=== PATIENT | female | born 1955 | race Caucasian/White ===

== ENCOUNTER 2016-10-11 09:39 | Inpatient (IN) | payer MEDICARE ==
[~2016-10-11] VITALS: Ht 165.1 cm; Wt 73.5 kg
[~2016-10-11 09:39] MED LIST: ATEN100T PO; FLUT1INH INH; HYDR-3516 PO; LISI10TA3 PO; LYRI150C PO; MACR100C2 PO; MONT10TA2 PO; PROT40TA PO; ROPI0.25 PO; VENTAER INH
[2016-10-14] MEDS ORDERED: ALPR0.25 PO (16:00)
[2016-10-15] MEDS ORDERED: ceFAZolin 2 GM PREMIX 50 ML IV SCH (08:00)
[2016-10-15] MEDS ORDERED: SODIUM CHLORID 0.9% 500 ML IV SCH (08:00)
[2016-10-15] MEDS: METRONIDAZOLE 500 MG/100 ML ISONTONIC SOLN IV SCH ×3 (08:00→23:12)
[2016-10-15] MEDS ORDERED: INSULIN HUMAN REGULAR 1,000 UNITS/10 ML VIAL SQ PRN (08:00)
[2016-10-15] MEDS ORDERED: METOPROLOL TARTRATE 25 MG TAB PO PRN (08:00)
[2016-10-15] MEDS ORDERED: ALVIMOPAN 12 MG CAPSULE - On Call PO SCH (08:00)
[2016-10-15] MEDS ORDERED: LACTATED RINGER'S 1000 ML IV SCH (08:00)
[2016-10-15] MEDS ORDERED: ZYRT10CA PO (08:01)
[2016-10-15 08:04] VITALS: BP 121/76; PULSE 70; RESP 16; TEMP 97.9; O2SAT 96
[2016-10-15 08:09] LABS: AUTOMATED NEUTROPHIL # 7.7 TH/MM3 (1.8-7.7); BASOPHIL # 0.1 TH/MM3 (0-0.2); BASOPHIL % 0.5 % (0.0-2.0); EOSINOPHIL # 0.2 TH/MM3 (0-0.4); EOSINOPHIL % 1.5 % (0.0-4.0); HEMATOCRIT 38.9 % (35.0-46.0); HEMO FLAGS DIFF FINAL; LYMPH % 14.2 % (9.0-44.0); LYMPHOCYTE # 1.5 TH/MM3 (1.0-4.8); MEAN CELL VOLUME 81.2 FL (80.0-100.0); MEAN CORPUSCULAR HEMOGLOBIN 27.3 PG (27.0-34.0); MEAN CORPUSCULAR HGB CONC 33.7 % (32.0-36.0); MONO % 8.3 % (0.0-8.0); NEUT % 75.5 % (16.0-70.0); PLATELET COUNT 300 TH/MM3 (150-450); RED BLOOD COUNT 4.79 MIL/MM3 (4.00-5.30); RED CELL DISTRIBUTION WIDTH 17.1 % (11.6-17.2); WHITE BLOOD COUNT 10.2 TH/MM3 (4.0-11.0)
[2016-10-15 08:32] LABS: ALT (GPT) 21 U/L (10-53); ANION GAP 7 MEQ/L (5-15); AST (GOT) 16 U/L (15-37); BICARBONATE 27.1 MEQ/L (21.0-32.0); BLOOD UREA NITROGEN 7 MG/DL (7-18); CHLORIDE 100 MEQ/L (98-107); GLOMERULAR FILTRATION RATE 97 ML/MIN (>89); POTASSIUM 4.2 MEQ/L (3.5-5.1); SODIUM (NA) 134 MEQ/L (136-145)
[2016-10-15 08:34] LABS: ALKALINE PHOSPHATASE 119 U/L (45-117); TOTAL BILIRUBIN ADULT 0.7 MG/DL (0.2-1.0)
[2016-10-15] MEDS ORDERED: ACETAMINOPHEN 1000 MG/100 ML VIAL IV ONE (08:41)
[2016-10-15] MEDS ORDERED: SUGAMMADEX SODIUM 200 MG/2 ML VIAL IV PUSH ONE ×2 (08:41)
[2016-10-15] MEDS ORDERED: FAMOTIDINE 20 MG/2 ML VIAL ONE (08:45)
[2016-10-15] MEDS ORDERED: MIDAZOLAM HCL 2 MG/2 ML VIAL ONE (08:45)
[2016-10-15] MEDS ORDERED: BUPIVACAINE/EPINEPHRINE 0.25% 50 ML VIAL INFIL ONE (09:26)
[2016-10-15] MEDS ORDERED: LACTATED RINGER'S 1000 ML INJ 2,000 ML IV ONE (12:00)
[2016-10-15] MEDS ORDERED: ONDANSETRON HCL 4 MG/2 ML VIAL IV PUSH ONE (12:00)
[2016-10-15] MEDS ORDERED: ceFAZolin 1 GM ADDVANTAGE VIAL IV ONE (12:00)
[2016-10-15] MEDS ORDERED: NEOSTIGMINE 3 MG/3 ML SYR IV ONE (12:00)
[2016-10-15] MEDS ORDERED: PHENYLEPH/NS 1000 MCG/10 ML SYR IV ONE (12:00)
[2016-10-15] MEDS ORDERED: PROPOFOL 200 MG/20 ML AMP IV ONE (12:00)
[2016-10-15] MEDS ORDERED: Post-op Orders (for Pharmacy) MISC XX ONE (13:02)
--- NOTE | 2016-10-15 13:10 | PD.OP ---
Operative Report Date of Surgery: Oct 15, 2016 Preoperative Diagnosis: severe recurrent sigmoid diverticulitis, UH Postoperative Diagnosis: same with adherence to bladder wall. Procedure: lap hand assisted sigmoid resection with colorectal anastomosis and lap repair cystotomy rigid proctoscopy UH repair Anesthesia: general Surgeon: Jae De Los Santos Crocheter(s): Adis Molina Operation and Findings: Sigmoid with chronic thickened inflammatory adherence to urinary bladder. Colon to pathology. Bladder repair 2 layer suture repair laparoscopic. Uh repair primary with suture. EBL less than 50 ml. Jae De Los Santos MD Oct 15, 2016 13:10
[2016-10-15] MEDS ORDERED: SODIUM CHLORIDE 0.9% FLUSH 10 ML FLUSH IV FLUSH PRN (13:15)
[2016-10-15] MEDS ORDERED: MAGNESIUM HYDROXIDE SUSP 30 ML CUP PO PRN (13:15)
[2016-10-15] MEDS ORDERED: diphenhydrAMINE HCL 25 MG CAP PO PRN (13:15)
[2016-10-15] MEDS ORDERED: ACETAMINOPHEN/HYDROcodone 325 MG/5 MG TAB PO PRN (13:15)
[2016-10-15] MEDS ORDERED: fentaNYL CITRATE 250 MCG/5 ML AMP ONE ×2 (13:22)
[2016-10-15] MEDS: LACTATED RINGER'S 1000 ML INJ 1,000 ML IV SCH ×2 (13:39→23:17)
[2016-10-15] MEDS ORDERED: *morphine SULFATE 8 MG/ML PERIprocedure ONLY ONE ×2 (14:17→14:26)
[2016-10-15] MEDS: ACETAMINOPHEN 1000 MG/100 ML VIAL IV SCH ×2 (15:00→20:29)
[2016-10-15] MEDS: HYDROmorphone HCL PF 1 MG/ML VIAL IV PRN ×2 (15:31→18:08)
[2016-10-15 16:00] VITALS: BP 140/79; PULSE 70; RESP 10; TEMP 96.1; O2SAT 99
[2016-10-15] MEDS: ALPRAZolam 0.25 MG TAB PO PRN (18:08)
[2016-10-15 18:34] VITALS: O2SAT 99
[2016-10-15 20:00] VITALS: BP 127/82; PULSE 74; RESP 20; TEMP 98.7; O2SAT 99
[2016-10-15] MEDS: SODIUM CHLORIDE 0.9% FLUSH 10 ML FLUSH IV FLUSH SCH (20:29)
[2016-10-15] MEDS: DOCUSATE SODIUM 100 MG CAP PO SCH (20:30)
[2016-10-15] MEDS: LISINOPRIL 10 MG TAB PO SCH (20:32)
[2016-10-15] MEDS: PANTOPRAZOLE SOD 40 MG DELAYED RELEASE TAB PO SCH (20:32)
[2016-10-15] MEDS: MONTELUKAST SODIUM 10 MG TAB PO SCH (20:32)
[2016-10-15] MEDS: ATENOLOL 100 MG TAB PO SCH (20:34)
[2016-10-15] MEDS: ACETAMINOPHEN/HYDROcodone 325 MG/5 MG TAB PO PRN (23:13)
[2016-10-16] VITALS (8 sets, daily range): BP systolic 118–158; BP diastolic 80–94; PULSE 63–73; RESP 17–20; TEMP 97–98.7; O2SAT 91–100
[2016-10-16] MEDS: HYDROmorphone HCL PF 1 MG/ML VIAL IV PRN ×6 (00:14→20:08)
[2016-10-16] MEDS: ACETAMINOPHEN 1000 MG/100 ML VIAL IV SCH ×2 (03:52→08:04)
[2016-10-16] MEDS: ACETAMINOPHEN/HYDROcodone 325 MG/5 MG TAB PO PRN ×5 (03:52→23:27)
[2016-10-16] MEDS: ALPRAZolam 0.25 MG TAB PO PRN ×4 (03:56→23:27)
[2016-10-16 04:43] LABS: AUTOMATED NEUTROPHIL # 6.3 TH/MM3 (1.8-7.7); BASOPHIL % 0.3 % (0.0-2.0); EOSINOPHIL # 0.1 TH/MM3 (0-0.4); EOSINOPHIL % 1.1 % (0.0-4.0); HEMATOCRIT 35.4 % (35.0-46.0); HEMO FLAGS DIFF FINAL; LYMPH % 18.8 % (9.0-44.0); LYMPHOCYTE # 1.7 TH/MM3 (1.0-4.8); MEAN CELL VOLUME 81.6 FL (80.0-100.0); MEAN CORPUSCULAR HEMOGLOBIN 27.7 PG (27.0-34.0); MEAN CORPUSCULAR HGB CONC 33.9 % (32.0-36.0); MONO % 9.7 % (0.0-8.0); NEUT % 70.1 % (16.0-70.0); PLATELET COUNT 255 TH/MM3 (150-450); RED BLOOD COUNT 4.33 MIL/MM3 (4.00-5.30); RED CELL DISTRIBUTION WIDTH 16.8 % (11.6-17.2)
[2016-10-16] MEDS: PREGABALIN 75 MG CAP PO SCH (08:04)
[2016-10-16] MEDS: ALVIMOPAN 12 MG CAPSULE PO SCH ×2 (08:04→20:01)
[2016-10-16] MEDS: DOCUSATE SODIUM 100 MG CAP PO SCH ×2 (08:05→20:01)
[2016-10-16] MEDS: SODIUM CHLORIDE 0.9% FLUSH 10 ML FLUSH IV FLUSH SCH ×2 (08:05→20:00)
[2016-10-16] MEDS: CETIRIZINE HCL 10 MG TAB PO SCH (08:05)
[2016-10-16] MEDS: ATENOLOL 100 MG TAB PO SCH ×2 (08:05→20:05)
[2016-10-16] MEDS: PANTOPRAZOLE SOD 40 MG DELAYED RELEASE TAB PO SCH ×2 (08:05→20:02)
[2016-10-16] MEDS: METRONIDAZOLE 500 MG/100 ML ISONTONIC SOLN IV SCH ×3 (08:06→23:28)
[2016-10-16] MEDS: FLUTICASONE 100 MCG/VILANTEROL 25 MCG INHALER INH SCH (09:00)
[2016-10-16] MEDS ORDERED: ALVIMOPAN 12 MG CAPSULE - Post-op dosing PO SCH (09:00)
--- NOTE | 2016-10-16 09:52 | HHI.PR ---
Subjective Subjective Notes awake, alert. C/O heartburn despite protonix. Has pain, meds effective, but do not last long enough. Objective Vitals/I&O Vital Signs Date Time Temp Pulse Resp B/P Pulse Ox O2 Delivery O2 Flow Rate FiO2 10/16/16 08:00 98.1 63 17 158/80 97 10/16/16 07:57 Nasal Cannula 3.00 Labs Laboratory Tests Test 10/16/16 03:39 White Blood Count 9.0 Red Blood Count 4.33 Hemoglobin 12.0 Hematocrit 35.4 Mean Corpuscular Volume 81.6 Mean Corpuscular Hemoglobin 27.7 Mean Corpuscular Hemoglobin 33.9 Concent Red Cell Distribution Width 16.8 Platelet Count 255 Mean Platelet Volume 8.2 Neutrophils (%) (Auto) 70.1 Lymphocytes (%) (Auto) 18.8 Monocytes (%) (Auto) 9.7 Eosinophils (%) (Auto) 1.1 Basophils (%) (Auto) 0.3 Neutrophils # (Auto) 6.3 Lymphocytes # (Auto) 1.7 Monocytes # (Auto) 0.9 Eosinophils # (Auto) 0.1 Basophils # (Auto) 0.0 CBC Comment DIFF FINAL Differential Comment Sodium Level 135 Potassium Level 4.0 Chloride Level 99 Carbon Dioxide Level 29.0 Anion Gap 7 Blood Urea Nitrogen 5 Creatinine 0.54 Estimat Glomerular Filtration 116 Rate Random Glucose 103 Calcium Level 7.9 Cardiovascular: Regular Lungs: Clear Abdomen: Other (incisions all healing well, dry, no erythema. Dressing intact LLQ. BSs normal. ), Post-op tenderness Extremities: No edema, SCD's on A/P Assessment and Plan POD 1 s/p lap assisted sigmoid resection, repair bladder for severe sigmoid diverticulitis. Add flexeril, carafate. Walk halls. Maintain barr due to bladder repair. reassurrance provided. Jae De Los Santos MD Oct 16, 2016 09:52
[2016-10-16] MEDS: LACTATED RINGER'S 1000 ML INJ 1,000 ML IV SCH ×2 (10:00→20:14)
--- NOTE | 2016-10-16 10:59 | EKG ---
Date Performed: 10/15/2016 Time Performed: 07:59:12 PTAGE: 61 years EKG: Sinus rhythm ST DEVIATION AND MODERATE T-WAVE ABNORMALITY, CONSIDER ANTERIOR ISCHEMIA ABNORMAL ECG PREVIOUS TRACING : 08/11/2015 11.03 DOCTOR: Michael Pat Interpretating Date/Time 10/16/2016 10:57:12
[2016-10-16] MEDS: SUCRALFATE 1 GM/10 ML CUP PO SCH ×3 (11:22→20:01)
[2016-10-16] MEDS: CYCLOBENZAPRINE HCL 10 MG TAB PO PRN ×2 (11:22→20:07)
[2016-10-16] MEDS: ENOXAPARIN SODIUM 30 MG/0.3 ML SYRINGE SQ SCH (11:22)
[2016-10-16] MEDS: ONDANSETRON HCL 4 MG/2 ML VIAL IV PRN (14:51)
[2016-10-16] MEDS: ACETAMINOPHEN 325 MG TAB PO SCH ×2 (15:00→20:04)
[2016-10-16] MEDS: ALUMINUM/MAGNESIUM/SIMETH 30 ML CUP PO PRN ×2 (18:20→23:27)
[2016-10-16] MEDS: MONTELUKAST SODIUM 10 MG TAB PO SCH (20:04)
[2016-10-16] MEDS: LISINOPRIL 10 MG TAB PO SCH (20:05)
[2016-10-17] VITALS (7 sets, daily range): BP systolic 137–179; BP diastolic 3–98; PULSE 79–90; RESP 19–20; TEMP 96.6–98.6; O2SAT 90–97
[2016-10-17] MEDS: HYDROmorphone HCL PF 1 MG/ML VIAL IV PRN ×4 (01:40→21:06)
[2016-10-17] MEDS: ONDANSETRON HCL 4 MG/2 ML VIAL IV PRN ×2 (01:40→08:07)
[2016-10-17] MEDS ORDERED: ALPRAZolam 0.25 MG TAB PO ONE (01:45)
[2016-10-17] MEDS: ACETAMINOPHEN 325 MG TAB PO SCH ×4 (03:00→21:00)
[2016-10-17] MEDS: CYCLOBENZAPRINE HCL 10 MG TAB PO PRN ×2 (04:39→18:33)
[2016-10-17] MEDS: ALUMINUM/MAGNESIUM/SIMETH 30 ML CUP PO PRN ×3 (04:39→20:59)
[2016-10-17] MEDS: SUCRALFATE 1 GM/10 ML CUP PO SCH ×4 (04:40→20:59)
[2016-10-17] MEDS: ATENOLOL 100 MG TAB PO SCH ×2 (08:09→20:59)
[2016-10-17] MEDS: ACETAMINOPHEN/HYDROcodone 325 MG/5 MG TAB PO PRN ×3 (08:09→18:34)
[2016-10-17] MEDS: PREGABALIN 75 MG CAP PO SCH (08:09)
[2016-10-17] MEDS: ALVIMOPAN 12 MG CAPSULE PO SCH ×2 (08:09→20:59)
[2016-10-17] MEDS: DOCUSATE SODIUM 100 MG CAP PO SCH ×2 (08:09→21:00)
[2016-10-17] MEDS: CETIRIZINE HCL 10 MG TAB PO SCH (08:09)
[2016-10-17] MEDS: PANTOPRAZOLE SOD 40 MG DELAYED RELEASE TAB PO SCH ×2 (08:09→20:59)
[2016-10-17] MEDS: METRONIDAZOLE 500 MG/100 ML ISONTONIC SOLN IV SCH ×3 (08:10→23:33)
[2016-10-17] MEDS: SODIUM CHLORIDE 0.9% FLUSH 10 ML FLUSH IV FLUSH SCH ×2 (08:10→21:00)
[2016-10-17] MEDS: FLUTICASONE 100 MCG/VILANTEROL 25 MCG INHALER INH SCH (08:11)
[2016-10-17] MEDS: LACTATED RINGER'S 1000 ML INJ 1,000 ML IV SCH ×3 (08:11→21:02)
[2016-10-17] MEDS: ENOXAPARIN SODIUM 30 MG/0.3 ML SYRINGE SQ SCH (10:49)
[2016-10-17 14:07] LABS: AUTOMATED NEUTROPHIL # 13.8 TH/MM3 (1.8-7.7); BASOPHIL # 0.1 TH/MM3 (0-0.2); BASOPHIL % 0.3 % (0.0-2.0); HEMATOCRIT 36.8 % (35.0-46.0); HEMO FLAGS DIFF FINAL; LYMPHOCYTE # 0.9 TH/MM3 (1.0-4.8); MEAN CELL VOLUME 80.4 FL (80.0-100.0); MEAN CORPUSCULAR HEMOGLOBIN 27.3 PG (27.0-34.0); MEAN CORPUSCULAR HGB CONC 33.9 % (32.0-36.0); MONO % 4.1 % (0.0-8.0); NEUT % 89.6 % (16.0-70.0); PLATELET COUNT 313 TH/MM3 (150-450); RED BLOOD COUNT 4.57 MIL/MM3 (4.00-5.30); RED CELL DISTRIBUTION WIDTH 16.2 % (11.6-17.2); WHITE BLOOD COUNT 15.4 TH/MM3 (4.0-11.0)
[2016-10-17] MEDS: ALPRAZolam 0.25 MG TAB PO PRN (16:13)
[2016-10-17] MEDS: ENALAPRILAT 2.5 MG/2 ML VIAL IV PRN (18:34)
[2016-10-17] MEDS: LISINOPRIL 10 MG TAB PO SCH (20:59)
[2016-10-17] MEDS: MONTELUKAST SODIUM 10 MG TAB PO SCH (20:59)
--- NOTE | 2016-10-17 23:47 | HHI.PR ---
Subjective Subjective Notes reflux still bad today Objective Vitals/I&O Vital Signs Date Time Temp Pulse Resp B/P Pulse Ox O2 Delivery O2 Flow Rate FiO2 10/17/16 20:24 95 Nasal Cannula 3.00 10/17/16 20:00 97.6 82 20 151/96 Labs Laboratory Tests Test 10/17/16 13:47 White Blood Count 15.4 Red Blood Count 4.57 Hemoglobin 12.5 Hematocrit 36.8 Mean Corpuscular Volume 80.4 Mean Corpuscular Hemoglobin 27.3 Mean Corpuscular Hemoglobin 33.9 Concent Red Cell Distribution Width 16.2 Platelet Count 313 Mean Platelet Volume 8.2 Neutrophils (%) (Auto) 89.6 Lymphocytes (%) (Auto) 6.0 Monocytes (%) (Auto) 4.1 Eosinophils (%) (Auto) 0.0 Basophils (%) (Auto) 0.3 Neutrophils # (Auto) 13.8 Lymphocytes # (Auto) 0.9 Monocytes # (Auto) 0.6 Eosinophils # (Auto) 0.0 Basophils # (Auto) 0.1 CBC Comment DIFF FINAL Differential Comment Cardiovascular: Regular Lungs: Clear Abdomen: Non-distended, Post-op tenderness Extremities: No edema, Perfused, SCD's on A/P Assessment and Plan 61yo female POD 2 s/p lap assisted sigmoid resection, repair bladder for severe sigmoid diverticulitis. reflux still bothering her Maintain barr due to bladder repair. OOB/pulmonary toilet Vadim Dawson MD Oct 17, 2016 23:46
[2016-10-18] VITALS (7 sets, daily range): BP systolic 137–159; BP diastolic 81–92; PULSE 80–90; RESP 17–20; TEMP 96.2–99.8; O2SAT 91–96
[2016-10-18] MEDS: HYDROmorphone HCL PF 1 MG/ML VIAL IV PRN ×4 (02:06→22:21)
[2016-10-18] MEDS: ACETAMINOPHEN 325 MG TAB PO SCH ×4 (03:00→20:33)
[2016-10-18] MEDS: ACETAMINOPHEN/HYDROcodone 325 MG/5 MG TAB PO PRN ×4 (03:57→20:30)
[2016-10-18] MEDS: ALUMINUM/MAGNESIUM/SIMETH 30 ML CUP PO PRN (03:57)
[2016-10-18 05:27] LABS: AUTOMATED NEUTROPHIL # 7.9 TH/MM3 (1.8-7.7); BASOPHIL % 0.1 % (0.0-2.0); EOSINOPHIL # 0.1 TH/MM3 (0-0.4); EOSINOPHIL % 1.1 % (0.0-4.0); HEMATOCRIT 33.7 % (35.0-46.0); HEMO FLAGS DIFF FINAL; LYMPH % 8.7 % (9.0-44.0); LYMPHOCYTE # 0.8 TH/MM3 (1.0-4.8); MEAN CELL VOLUME 81.4 FL (80.0-100.0); MEAN CORPUSCULAR HEMOGLOBIN 26.7 PG (27.0-34.0); MEAN CORPUSCULAR HGB CONC 32.9 % (32.0-36.0); MONO % 7.3 % (0.0-8.0); NEUT % 82.8 % (16.0-70.0); PLATELET COUNT 268 TH/MM3 (150-450); RED BLOOD COUNT 4.14 MIL/MM3 (4.00-5.30); RED CELL DISTRIBUTION WIDTH 16.7 % (11.6-17.2); WHITE BLOOD COUNT 9.5 TH/MM3 (4.0-11.0)
[2016-10-18] MEDS: SUCRALFATE 1 GM/10 ML CUP PO SCH ×4 (05:30→20:29)
--- NOTE | 2016-10-18 07:45 | HHI.PR ---
Subjective Subjective Notes feels a little better, having diarrhea, reflux somewhat improved. Wants to go home soon. Objective Vitals/I&O Vital Signs Date Time Temp Pulse Resp B/P Pulse Ox O2 Delivery O2 Flow Rate FiO2 10/18/16 00:00 97.4 80 20 142/89 95 10/17/16 20:24 Nasal Cannula 3.00 Labs Laboratory Tests Test 10/17/16 10/18/16 13:47 04:55 White Blood Count 15.4 9.5 Red Blood Count 4.57 4.14 Hemoglobin 12.5 11.1 Hematocrit 36.8 33.7 Mean Corpuscular Volume 80.4 81.4 Mean Corpuscular Hemoglobin 27.3 26.7 Mean Corpuscular Hemoglobin 33.9 32.9 Concent Red Cell Distribution Width 16.2 16.7 Platelet Count 313 268 Mean Platelet Volume 8.2 8.0 Neutrophils (%) (Auto) 89.6 82.8 Lymphocytes (%) (Auto) 6.0 8.7 Monocytes (%) (Auto) 4.1 7.3 Eosinophils (%) (Auto) 0.0 1.1 Basophils (%) (Auto) 0.3 0.1 Neutrophils # (Auto) 13.8 7.9 Lymphocytes # (Auto) 0.9 0.8 Monocytes # (Auto) 0.6 0.7 Eosinophils # (Auto) 0.0 0.1 Basophils # (Auto) 0.1 0.0 CBC Comment DIFF FINAL DIFF FINAL Differential Comment Cardiovascular: Regular Lungs: Clear Abdomen: Non-distended, Other (LLQ dressing removed, no erythema or drainage. Laparoscopy sites clean and dry with steristrips. Umbilical dressing left intact , ecchymosis present.), Post-op tenderness Extremities: No edema, Perfused, SCD's on A/P Assessment and Plan POD 3 s/p lap assisted sigmoid resection, repair bladder for severe sigmoid diverticulitis. Postoperative reflux, somewhat improved. Already on double dose protonix, carafate and mylanta. Diarrhea. Will stop flagyl and entereg. Start regular diet. Stop IVFs. Will recheck later today to determine possible DC. Jae De Los Santos MD Oct 18, 2016 07:45
[2016-10-18] MEDS: DOCUSATE SODIUM 100 MG CAP PO SCH ×2 (09:00→20:29)
[2016-10-18] MEDS: SODIUM CHLORIDE 0.9% FLUSH 10 ML FLUSH IV FLUSH SCH ×2 (09:00→20:55)
[2016-10-18] MEDS: CETIRIZINE HCL 10 MG TAB PO SCH (09:00)
[2016-10-18] MEDS: ATENOLOL 100 MG TAB PO SCH ×2 (09:00→20:30)
[2016-10-18] MEDS: FLUTICASONE 100 MCG/VILANTEROL 25 MCG INHALER INH SCH (09:00)
[2016-10-18] MEDS: PANTOPRAZOLE SOD 40 MG DELAYED RELEASE TAB PO SCH ×2 (09:01→20:30)
[2016-10-18] MEDS: PREGABALIN 75 MG CAP PO SCH (09:01)
[2016-10-18] MEDS ORDERED: PROPOFOL 200 MG/20 ML AMP IV ONE (10:55)
[2016-10-18] MEDS ORDERED: DO NOT ADM ANY ANTICOAGULANT DRUGS XX PRN (11:05)
--- NOTE | 2016-10-18 11:14 | GIPROC ---
[facility] [address] [facility]. [facility], [address] EGD PROCEDURE REPORT EXAM DATE: 10/18/2016 PATIENT NAME: Christy Edmonds MR#: [id number] BIRTHDATE: 1955 STATUS: inpatient ATTENDING: Aleksandra Wells MD CORPORATE OPERATIONS COMPLIANCE MANAGER: Quinn Paniagua and Derrek Gordillo INDICATIONS: The patient is a 61 yr old female here for an EGD due to history of GERD. PROCEDURE PERFORMED: EGD w/ biopsy MEDICATIONS: None and Per Anesthesia. ASA CLASS: Class II PHYSICAL EXAM: normal CONSENT: The patient understands the risks and benefits of the procedure and understands that these risks include, but are not limited to: sedation, allergic reaction, infection, perforation and/or bleeding. Alternative means of evaluation and treatment include, among others: physical exam, x-rays, and/or surgical intervention. The patient elects to proceed with this endoscopic procedure. DESCRIPTION OF PROCEDURE: for proper function. Hand hygiene and appropriate measures for infection prevention was taken. After the risks, benefits and alternatives of the procedure were thoroughly explained, Informed consent was verified, confirmed and timeout was successfully executed by the treatment team. The Pentax EG-[id number] endoscope was introduced through the mouth and advanced to the second portion of the duodenum. The instrument was slowly withdrawn as the mucosa was fully examined. ESOPHAGUS: There was LA Class D esophagitis noted. Multiple biopsies were performed. A medium sized non-bleeding, linear and clean-based ulcer was found in the distal esophagus. Biopsies were taken at edge of the ulcer and at the center of the ulcer. STOMACH: There was moderate and erosive gastritis in the gastric body and gastric antrum. Multiple biopsies were performed. The stomach otherwise appeared normal. DUODENUM: The duodenal mucosa appeared normal in the duodenal bulb and 2nd part duodenum. Retroflexed views revealed a hiatal hernia The gastroscope was then slowly withdrawn and removed. COMPLICATIONS: There were no complications. IMPRESSIONS: 1. There was LA Class D esophagitis noted; multiple biopsies were performed 2. Medium sized ulcer was found in the distal esophagus; biopsies were taken 3. There was gastritis in the gastric body and gastric antrum; multiple biopsies were performed 4. The stomach otherwise appeared normal 5. Normal duodenal mucosa in the duodenal bulb and 2nd part duodenum 6. Retroflexed views revealed a hiatal hernia RECOMMENDATIONS: 1. Await biopsy results. Biopsy results will not be ready for 7-10 days. If you don't hear from us in two weeks, call our office for biopsy results. 2. Anti-reflux regimen 3. Continue PPI 4. Avoid NSAIDS 5. Carafate 1 gm po qid ac 6. Protonix 40mg BID 7. START nystatin swish and swallow x 1 wk PATIENT CONDITION: stable DISPOSITION: Inpatient REPEAT EXAM: Return 2 months EGD Aleksandra Wells MD eSigned: Aleksandra Wells MD 10/18/2016 11:14 AM cc: Jae De Los Santos M.D. PATIENT NAME: Christy Edmonds MR#: [id number]
--- NOTE | 2016-10-18 11:29 | PD.CONS ---
GI Consult GI Consult Full consult dictate Post procedure note ASSESSMENT/PLAN: 1. Severe GERD S/P EGD with bx 1. LA class D ulcerative esophagitis s/p bx 2. Distal Esophagus ulcer 3. 2cm hiatal hernia 4. Gastritis 5. Nl DU PLAN: 1. Protonix 40 mg bid 2. CARAFATE 1 gm PO Q AC and HS x 2 months 3. Nystatin 5 mg po swish and swallow x 2 wks 4. will rpt EGD in 2 months 5. Diet as tolerated 6. No objection to discharge from gi stand point. It was a pleasure seeing Christy Edmonds . Thank you for this consult. Entered by: Aleksandra Quintero MD Oct 18, 2016 11:29
--- NOTE | 2016-10-18 12:11 | MB ---
cc: NASIR BRITTON DATE OF 1955 SERVICE DATE 10/18/2016 SERVICE GI ENDOSCOPIST Nasir Britton MD REASON FOR CONSULTATION Severe gastroesophageal reflux despite PPI therapy. HISTORY OF PRESENT ILLNESS This is a 61-year-old female who has been having recurrent bouts of diverticulitis. She recently underwent an elective laparoscopic sigmoid resection, has had an uneventful postoperative course in regards to her abdominal surgery. She has been complaining of severe reflux symptoms despite being on Protonix twice a day. She is having episodes of dysphagia due to the symptoms, therefore GI was consulted. PAST MEDICAL HISTORY 1. Diverticulosis. 2. Diverticulitis. 3. Severe gastroesophageal reflux disease. PAST SURGICAL HISTORY Recent sigmoid colectomy for sigmoid resection. MEDICATIONS Please see MAR for complete list. ALLERGIES BACTRIM. NOVOCAIN. SULFA. FAMILY HISTORY No GI malignancy. SOCIAL HISTORY Denies tobacco, alcohol or drug abuse. REVIEW OF SYSTEMS A 12-point review of systems was obtained which was otherwise negative and noncontributory except for the above-mentioned in the HPI. PHYSICAL EXAMINATION VITAL SIGNS: Temperature 99.3, 81, 21, 32/82, 98% on room air. GENERAL: Alert oriented. In mild acute distress. GENERAL: Normocephalic. Oral mucosa is moist. HEENT: Mucosa dry but pink. Extraocular movements are intact. NECK: Supple, nontender. No carotid bruits. LUNGS: Clear to auscultation, nonlabored. CARDIOVASCULAR: Normal rate and rhythm. GASTROINTESTINAL: Soft, nontender. Not distended. Bowel sounds present in all four quadrants. BACK: No CVA angle tenderness. LYMPHATICS: No lymphadenopathy. MUSCULOSKELETAL: Normal range of motion. SKIN: Warm, dry, intact. NEURO: Alert, oriented. PSYCHIATRIC: Cooperative. Appropriate mood and affect. LABORATORY DATA WBC 9.5, hemoglobin 11.1, platelet count of 268. Sodium 135, potassium 4.0, chloride 99m bicarb 29, BUN 5, creatinine 0.54. IMPRESSION Recurrent severe reflux despite PPI therapy. 4. Episodic dysphagia. RECOMMENDATIONS 1. Keep the patient n.p.o. for now. 2. Will plan for an upper endoscopy for further evaluation and recommendations. 3. Further recommendations to follow depending on results of the endoscopy. MD MONO Pineda/SSB /11:33 AM /11:53 AM MTDTaran
[2016-10-18] MEDS: ENOXAPARIN SODIUM 30 MG/0.3 ML SYRINGE SQ SCH (12:19)
[2016-10-18] MEDS: NYSTATIN SUSP 500,000 U/5 ML CUP SWISH-SWAL SCH ×3 (12:22→20:29)
[2016-10-18] MEDS: ONDANSETRON HCL 4 MG/2 ML VIAL IV PRN ×2 (15:41→22:21)
[2016-10-18] MEDS: ALPRAZolam 0.25 MG TAB PO PRN (15:53)
--- NOTE | 2016-10-18 16:35 | HHI.PR ---
Subjective Subjective Notes Had EGD this morning, severe esophagitis, ulcer and gastritis identified, with some changes suggestive of yeast involvement. Pt c/o difficulty swallowing. Additional meds ordered by Dr Krystin Wells. Objective Vitals/I&O Vital Signs Date Time Temp Pulse Resp B/P Pulse Ox O2 Delivery O2 Flow Rate FiO2 10/18/16 12:00 98.1 83 17 142/82 92 10/18/16 09:26 Nasal Cannula 3.00 Labs Laboratory Tests Test 10/18/16 04:55 White Blood Count 9.5 Red Blood Count 4.14 Hemoglobin 11.1 Hematocrit 33.7 Mean Corpuscular Volume 81.4 Mean Corpuscular Hemoglobin 26.7 Mean Corpuscular Hemoglobin 32.9 Concent Red Cell Distribution Width 16.7 Platelet Count 268 Mean Platelet Volume 8.0 Neutrophils (%) (Auto) 82.8 Lymphocytes (%) (Auto) 8.7 Monocytes (%) (Auto) 7.3 Eosinophils (%) (Auto) 1.1 Basophils (%) (Auto) 0.1 Neutrophils # (Auto) 7.9 Lymphocytes # (Auto) 0.8 Monocytes # (Auto) 0.7 Eosinophils # (Auto) 0.1 Basophils # (Auto) 0.0 CBC Comment DIFF FINAL Differential Comment A/P Assessment and Plan POD 3 s/p lap assisted sigmoid resection, repair bladder for severe sigmoid diverticulitis. Severe Esophagitis. New meds per GI. Good stays in for a week due to bladder repair- urine grossly clear. Pt not ready for DC, not swallowing well now. Will renew IVFs. Jae De Los Santos MD Oct 18, 2016 16:35
[2016-10-18] MEDS: LACTATED RINGER'S 1000 ML INJ 1,000 ML IV SCH ×2 (17:17→22:42)
[2016-10-18] MEDS: MONTELUKAST SODIUM 10 MG TAB PO SCH (20:29)
[2016-10-18] MEDS: LISINOPRIL 10 MG TAB PO SCH (20:31)
[2016-10-19] VITALS: BP 150/86; PULSE 88; RESP 20; TEMP 97; O2SAT 94
[2016-10-19] MEDS: ACETAMINOPHEN 325 MG TAB PO SCH ×4 (03:00→19:54)
[2016-10-19] MEDS: SUCRALFATE 1 GM/10 ML CUP PO SCH ×4 (03:36→19:45)
[2016-10-19] MEDS: ONDANSETRON HCL 4 MG/2 ML VIAL IV PRN (03:37)
[2016-10-19] MEDS: ACETAMINOPHEN/HYDROcodone 325 MG/5 MG TAB PO PRN ×3 (03:37→16:27)
[2016-10-19 08:00] VITALS: BP 168/89; PULSE 76; RESP 17; TEMP 98.3; O2SAT 95
[2016-10-19] MEDS: DOCUSATE SODIUM 100 MG CAP PO SCH ×2 (08:44→19:54)
[2016-10-19] MEDS: NYSTATIN SUSP 500,000 U/5 ML CUP SWISH-SWAL SCH ×4 (08:44→19:45)
[2016-10-19] MEDS: CETIRIZINE HCL 10 MG TAB PO SCH (08:46)
[2016-10-19] MEDS: PREGABALIN 75 MG CAP PO SCH (08:46)
[2016-10-19] MEDS: PANTOPRAZOLE SOD 40 MG DELAYED RELEASE TAB PO SCH ×2 (08:46→19:46)
[2016-10-19] MEDS: HYDROmorphone HCL PF 1 MG/ML VIAL IV PRN ×3 (08:47→18:03)
[2016-10-19] MEDS: ATENOLOL 100 MG TAB PO SCH ×2 (08:51→19:46)
[2016-10-19] MEDS: SODIUM CHLORIDE 0.9% FLUSH 10 ML FLUSH IV FLUSH SCH ×2 (09:00→19:56)
[2016-10-19] MEDS: FLUTICASONE 100 MCG/VILANTEROL 25 MCG INHALER INH SCH (09:00)
--- NOTE | 2016-10-19 10:09 | HHI.PR ---
Subjective Subjective Notes Resting in bed Gives thumbs down when asked how she is RN Lexie at bedside Objective Vitals/I&O Vital Signs Date Time Temp Pulse Resp B/P Pulse Ox O2 Delivery O2 Flow Rate FiO2 10/19/16 08:00 98.3 76 17 168/89 95 10/18/16 09:26 Nasal Cannula 3.00 Cardiovascular: Regular Lungs: Clear Abdomen: Other (no erythemia; lap sites c/d/i with steri strips; Umbilical dressing in place; ecchymosis present ), Post-op tenderness Extremities: No edema A/P Assessment and Plan 61 year old female POD4 s/p lap assisted sigmoid resection, repair bladder for severe sigmoid diverticulitis. -s/p EGD; Severe Esophagitis. -Barr stays in for a week due to bladder repair- urine grossly clear. -Regular diet; added Ensure -Pain control -PT today; OOB Attending Statement Still having difficulty swallowing solids, liquids go down OK. No ensure provided yet. Having BMs. Walked halls twice today with sig other. Incisions all healing well. No erythema or drainage. Plan DC tomorrow. orders put in for ensure, DC plans for barr and follow up with GI and me. Scrips on chart for carafate, lortab, and nystatin. Cass Oliver Oct 19, 2016 10:08 Jae De Los Santos MD Oct 19, 2016 16:23
[2016-10-19 12:00] VITALS: BP 179/84; PULSE 74; RESP 18; TEMP 98.4; O2SAT 96
[2016-10-19] MEDS: ENOXAPARIN SODIUM 30 MG/0.3 ML SYRINGE SQ SCH (12:03)
[2016-10-19] MEDS: ALPRAZolam 0.25 MG TAB PO PRN (12:04)
[2016-10-19] MEDS: LACTATED RINGER'S 1000 ML INJ 1,000 ML IV SCH ×2 (12:09→19:55)
--- NOTE | 2016-10-19 12:23 | MP ---
cc: HORTENCIA FERRERA M.D. DATE OF SURGERY: 10/15/2016 PREOPERATIVE DIAGNOSIS 1. Severe recurrent sigmoid diverticulitis. 2. Umbilical hernia. POSTOPERATIVE DIAGNOSIS 1. Severe recurrent sigmoid diverticulitis. 2. Umbilical hernia. 3. Adherence of sigmoid colon to bladder wall. PROCEDURE 1. Laparoscopic hand-assisted sigmoid resection with colorectal anastomosis. 2. Laparoscopic repair of cystotomy. 3. Open repair umbilical hernia. SURGEON Dr. Hortencia Ferrera NON PROFIT JOB TITLES SURGEON Dr. Adis Molina SECOND NON PROFIT JOB TITLES [place], [place] III ANESTHESIA General. INDICATIONS This is a pleasant 61-year-old woman who suffered from multiple recurrent episodes of sigmoid diverticulitis. She has been treated with antibiotics on multiple occasions, had attempted colonoscopies and CT scans. She is just unable to go on without surgical resection. INTRAOPERATIVE FINDINGS Sigmoid colon with dense chronic inflammatory changes. Adherence to the bladder wall, resulting in partial resection of the bladder wall and closure of the bladder laparoscopically. The sigmoid colon was sent to pathology with a suture on the proximal end. The colorectal anastomosis was performed with 29 EEA stapling device and no leak was evident. A rigid proctoscopy was also performed. ESTIMATED BLOOD LOSS Less than 50 mL. DESCRIPTION OF PROCEDURE IN DETAIL The patient was identified as Christy Kenton, taken to the operating room and placed in supine position. Sequential compression devices were placed on bilateral lower extremities. Following induction of adequate general endotracheal anesthesia a Good catheter was placed and the patient was placed in the [facility]. The abdomen was prepped and draped in the usual sterile fashion with Betadine. A timeout procedure was performed. Following completion of the timeout procedure to everyone's satisfaction within the room 0.25% Marcaine with epinephrine was placed at each incision site. A supraumbilical transverse incision was carried out with a scalpel. Dissection continued posteriorly lifting the umbilical skin off herniated preperitoneal fatty tissue. The peritoneum was entered with the surgeon's finger through the umbilical hernia defect and the [employer] balloon Heidi trocar was placed in the peritoneal cavity. Its balloon inflated with CO2 insufflation until a level of 15 mmHg ensued. An upper midline 5 mm trocar and a right lower quadrant 10-12 trocar were placed in the peritoneal cavity under direct laparoscopic view after incision of the skin with a scalpel. Immediately identified with severe inflammation of the sigmoid colon adherent to the anterior abdominal wall and the pelvis. Dissection proceeded with the Harmonic scalpel to stay out of the colon and remove the colon from the peritoneum and in doing so dense adherence to the bladder resulted in a cystotomy to adequately resect the colon. There did not appear to be a colovesical fistula. However, it was immediately apparent that there was a defect in the bladder wall. Once the colon had been completely removed from the anterior abdominal wall and the pelvic sidewall without injuring any other structures, the hand assist port was placed in the left lower quadrant. After instillation of local anesthetic and 8 cm transverse incision using electrocautery, dissection continued posteriorly through subcutaneous fatty tissue to the anterior fascia and muscular and posterior fascial layers entering the peritoneum. The hand assist GelPort was placed in a standard fashion. The bladder defect was then closed laparoscopically with multiple interrupted 3-0 Vicryl sutures. A second layer of imbricating 0 Ethibond sutures were placed using the laparoscopic suture administrative services assistant device. This resulted in excellent closure of the bladder without any evidence of leak or a persistent defect. Attention was then turned to mobilization of the sigmoid colon and descending colon along the white line of Toldt, using the Harmonic scalpel and the hand assist this was performed. The splenic flexure was mobilized as well all the way to the mid transverse colon. The omentum was relieved from the overlying surface of the transverse colon. Once this had been mobilized successfully attention was turned distally. An intraperitoneal rectum was identified just above the peritoneal reflection. There were no inflammatory changes in this location. The Harmonic scalpel and the hand assist was used to open the peritoneum and create a window posterior to the intraperitoneal rectum. An endoscopic stapling device using the blue staple loads were used to staple across the intraperitoneal rectum allowing for mobilization of the proximal rectum and diseased sigmoid colon which could then be brought out through the hand assist port. A site of the descending colon proximal to the inflammatory change was selected and this was divided after creating a mesenteric window using the MANUEL stapling device. The mesentery was then taken down with the Harmonic scalpel and 2-0 Vicryl ties on major vascular structures. The specimen was marked with a silk suture proximally and passed off the field for pathologic evaluation. It was determined that further mobilization would be required of the colon in preparation for colorectal anastomosis and the abdomen was re-insufflated and this was performed. Once this had been done the a distal end was again brought out through the hand assist wound protector port and the staple line was excised. A small bleeding point was controlled with the Harmonic scalpel and electrocautery and the EEA sizers were used. A 29 EEA was selected, the anvil was placed into the end of the descending colon after placement of the pursestring device. The anvil and descending colon returned to the peritoneal cavity and the abdomen was re-insufflated. I then went below and performed a digital rectal exam ensuring there was no obstruction and a rigid proctoscopy of the distal stump. No mucosal abnormalities were identified. The EEA instrument was then placed through the anus into the rectum and found an exit site on the anterior wall in the colon. The anvil was prepared and the mesentery was not twisted on the descending colon. The end-to-end anastomosis was then performed in traditional fashion without complication. Two full doughnuts were retrieved. The anastomosis was examined exteriorly and interiorly and was tested for leak by filling the pelvis with fluid and insufflating through the rigid proctoscope, and no leak was identified, no bubbles were seen. There was a little bit of tension on the mesenteric attachments and these were released without dividing any further blood vessels using the Harmonic scalpel. There was now no tension on the anastomosis. The pelvis was irrigated with saline. The omentum was able to be manipulated down into to cover the anastomosis and be a bridge between the anastomosis and the uterus and the bladder repair. Photograph was taken at the end of the case of the lateral repair and the omentum laying between it and the colorectal anastomosis. The 10-12 port was removed in its opening was closed with two interrupted 0 Vicryl sutures placed using a suture passer type device. The 5 mm trocar was removed. The abdomen was desufflated. The wound protector was removed and the umbilical port was removed. Attention was turned to closure of the left lower quadrant wound which was closed in two layers using running #1 PDS sutures. Irrigation between layers occurred. 2-0 Vicryl and 4-0 Monocryl closed this incision. The umbilical hernia defect was approximated with several interrupted inverted 0 Prolene sutures. The umbilicus was reformed with 2-0 Vicryl. The remainder of the trocar incision sites were closed with 4-0 Monocryl subcuticular sutures. Dressings were applied with Mastisol and half-inch brown Steri-Strips. A Primapore dressing was placed on the left lower quadrant. Gauze and a Tegaderm were placed over the umbilicus. The patient tolerated the procedures without apparent complication. Sponge, needle and instrument counts were correct at the end of the case. MD TAMARA Reardon/GREGORY /1:02 PM /11:55 AM
[2016-10-19 16:00] VITALS: BP_SYST 172; BP_SYST 185; BP_DIAS 90; BP_DIAS 93; PULSE 80; RESP 17; TEMP 97.3; O2SAT 93
[2016-10-19] MEDS ORDERED: HYDR-3533 PO (16:15)
[2016-10-19] MEDS ORDERED: CARA1SUS3 PO (16:15)
[2016-10-19] MEDS ORDERED: NYST1000 SWISH-SWAL (16:15)
[2016-10-19] MEDS: ENALAPRILAT 2.5 MG/2 ML VIAL IV PRN (16:28)
[2016-10-19] MEDS: LISINOPRIL 10 MG TAB PO SCH (19:47)
[2016-10-19] MEDS: MONTELUKAST SODIUM 10 MG TAB PO SCH (19:53)
[2016-10-19 20:00] VITALS: BP 119/82; PULSE 73; RESP 20; TEMP 97.8; O2SAT 95
[2016-10-19 20:18] VITALS: O2SAT 94
[2016-10-20] VITALS: BP 145/96; PULSE 74; RESP 20; TEMP 98; O2SAT 96
[2016-10-20] MEDS: ACETAMINOPHEN/HYDROcodone 325 MG/5 MG TAB PO PRN ×3 (01:41→12:58)
[2016-10-20] MEDS: ALPRAZolam 0.25 MG TAB PO PRN ×2 (01:43→12:07)
[2016-10-20] MEDS: ACETAMINOPHEN 325 MG TAB PO SCH ×3 (03:00→08:18)
[2016-10-20] MEDS: SUCRALFATE 1 GM/10 ML CUP PO SCH ×2 (04:49→12:07)
--- NOTE | 2016-10-20 07:05 | HHI.FF ---
Face to Face Verification Diagnosis: (1) GERD with esophagitis (2) Diverticulitis Physical Therapy Order: Evaluate and Treat Instructions: no restrictions Home Health Nursing Order: Wound care and dressing changes Good catheter maintenance Instructions: Dry dressing daily to incision Good care I have seen patient Christy Edmonds on 10/20/16. My clinical findings support the need for the requested home health care services because: Limited ability to care for self High risk of falls I certify that my clinical findings support that this patient is homebound because: Post-op weakness Cass Oliver Oct 20, 2016 07:05
[2016-10-20 08:00] VITALS: BP_SYST 180; BP_DIAS 90; BP_DIAS 92; PULSE 81; RESP 17; TEMP 97.9; O2SAT 94
[2016-10-20] MEDS: ATENOLOL 100 MG TAB PO SCH (08:08)
[2016-10-20] MEDS: CETIRIZINE HCL 10 MG TAB PO SCH (08:08)
[2016-10-20] MEDS: DOCUSATE SODIUM 100 MG CAP PO SCH ×2 (08:08→08:18)
[2016-10-20] MEDS: NYSTATIN SUSP 500,000 U/5 ML CUP SWISH-SWAL SCH ×2 (08:08→12:07)
[2016-10-20] MEDS: PANTOPRAZOLE SOD 40 MG DELAYED RELEASE TAB PO SCH (08:08)
[2016-10-20] MEDS: PREGABALIN 75 MG CAP PO SCH (08:08)
[2016-10-20] MEDS: LACTATED RINGER'S 1000 ML INJ 1,000 ML IV SCH (08:09)
[2016-10-20] MEDS: SODIUM CHLORIDE 0.9% FLUSH 10 ML FLUSH IV FLUSH SCH (08:09)
[2016-10-20] MEDS: FLUTICASONE 100 MCG/VILANTEROL 25 MCG INHALER INH SCH (08:10)
[2016-10-20] MEDS ORDERED: WALKER WHEELS/F1 MIS (08:11)
--- NOTE | 2016-10-20 08:25 | HHI.DS ---
Discharge Summary Admission Date Oct 15, 2016 at 07:05 Discharge Date: Oct 20, 2016 Admitting Diagnosis severe sigmoid diverticulitis Procedures Lap hand assisted sigmoid resection with colorectal anastomosis, lap repair bladder wall defect, UH repair Brief History 61 year old with long h/o diverticulitis previously treated with abx on multiple occasions. CBC/BMP: 10/18/16 0455 10/16/16 0339 Significant Findings Laboratory Tests Test 10/17/16 10/18/16 13:47 04:55 White Blood Count 15.4 TH/MM3 (4.0-11.0) Neutrophils (%) (Auto) 89.6 % 82.8 % (16.0-70.0) (16.0-70.0) Lymphocytes (%) (Auto) 6.0 % 8.7 % (9.0-44.0) (9.0-44.0) Neutrophils # (Auto) 13.8 TH/MM3 7.9 TH/MM3 (1.8-7.7) (1.8-7.7) Lymphocytes # (Auto) 0.9 TH/MM3 0.8 TH/MM3 (1.0-4.8) (1.0-4.8) Hemoglobin 11.1 GM/DL (11.6-15.3) Hematocrit 33.7 % (35.0-46.0) Mean Corpuscular Hemoglobin 26.7 PG (27.0-34.0) PE at Discharge Incisions all healing well, no erythema. Moderate ecchymosis around umbilicus. abdomen soft, ND, minimally tender. Extremities with no edema. Hospital Course Pt admitted through [facility], had surgery, and recovered well from operation. Suffered from severe GERD with esophagitis, ? luis related, had EGD, was treated with PPI, carafate and Nystatin swish and swallow. Still with some pain with swallowing, but able to maintain hydration with ensure supplementation. Wants to go home. Barr left in to allow bladder to heal. [facility] arranged to assist with barr drainage, walker ordered due to mild weakness, instability. Follow up arranged with GI and surgery. Pt Condition on Discharge: Stable Discharge Disposition: Disch w/ Home Health Serv Discharge Instructions DIET: Follow Instructions for: As Tolerated, No Restrictions Additional Diet Instructions: ensure one serving 2-3 times a day. Activities you can perform: Shower Only-No Bath Activities to Avoid: Strenuous Activity, Driving Jae De Los Santos MD Oct 20, 2016 08:25
[2016-10-20 12:00] VITALS: BP 160/83; PULSE 74; RESP 17; TEMP 96.5; O2SAT 96
[2016-10-20] MEDS: ENOXAPARIN SODIUM 30 MG/0.3 ML SYRINGE SQ SCH (12:07)
[2016-10-20] MEDS: CYCLOBENZAPRINE HCL 10 MG TAB PO PRN (12:07)
== END 2016-10-20 14:24 | disposition home health service (06) | DRG 330 ==
LOC: HSDI 10-15 07:05 → N07B 10-15 16:03
PROVIDERS: ADMIT Surgery Trauma Surgery; ATTEND Surgery Trauma Surgery
PROC: 0TNB4ZZ Release Bladder, Percutaneous Endoscopic Approach (ICD-10-PCS; 2016-10-15)
PROC: 0TQB0ZZ Repair Bladder, Open Approach (ICD-10-PCS; 2016-10-15)
PROC: 0DJD8ZZ Inspection of Lower Intestinal Tract, Via Natural or Artificial Opening Endoscopic (ICD-10-PCS; 2016-10-15)
PROC: 0DTN0ZZ Resection of Sigmoid Colon, Open Approach (ICD-10-PCS; principal; 2016-10-15 08:49)
PROC: 0WQF0ZZ Repair Abdominal Wall, Open Approach (ICD-10-PCS; 2016-10-15 08:49)
PROC: 0DB38ZX Excision of Lower Esophagus, Via Natural or Artificial Opening Endoscopic, Diagnostic (ICD-10-PCS; 2016-10-18)
PROC: 0DB68ZX Excision of Stomach, Via Natural or Artificial Opening Endoscopic, Diagnostic (ICD-10-PCS; 2016-10-18)
DX: K57.20 Diverticulitis of large intestine with perforation and abscess without bleeding (principal); N99.71 Accidental puncture and laceration of a genitourinary system organ or structure during a genitourinary system procedure; K22.10 Ulcer of esophagus without bleeding; G62.9 Polyneuropathy, unspecified; R13.19 Other dysphagia; J44.9 Chronic obstructive pulmonary disease, unspecified; I10 Essential (primary) hypertension; K42.9 Umbilical hernia without obstruction or gangrene; J45.909 Unspecified asthma, uncomplicated; F41.9 Anxiety disorder, unspecified; K21.0 Gastro-esophageal reflux disease with esophagitis; K29.60 Other gastritis without bleeding; K44.9 Diaphragmatic hernia without obstruction or gangrene; F17.210 Nicotine dependence, cigarettes, uncomplicated; F32.9 Major depressive disorder, single episode, unspecified; Z88.2 Allergy status to sulfonamides
CPT/HCPCS: 80048; 80053; 85025; 86850; 86900; 86901; 88305; 88307; 88312; 93005; J0131; J0690; J1170; J1650; J2250; J2270; J2370; J2405; J2710; J3010; J7120